=== PATIENT | female | born 1990 | race Caucasian/White ===

== ENCOUNTER 2016-04-12 03:25 | Emergency (ER) | payer BC ==
[~2016-04-12 03:25] MED LIST: IBUP600 PO
--- NOTE | 2016-04-12 04:08 | PD ---
HPI Chief Complaint Contractions Date Seen: Apr 12, 2016 Travel History International Travel<30 Days: No Contact w/Intl Traveler<30Days: No Known Affected Area: No History of Present Illness HPI 25-year-old white female 39 weeks irregular contractions and tingling feelings in the vaginal area, no bleeding or ruptured membranes baby is active. Contractions are not that uncomfortable. Checked in the office and she was 2 cm and recheck tonight she still 2 cm Para: 2 : 3 History Obstetric History Obstetric History 2 vaginal deliveries Family History Family History: Negative Social History Alcohol Use: No Tobacco Use: No Substance Abuse: No Allergies-Medications (Allergen,Severity, Reaction): Coded Allergies: No Known Allergies (Verified , 07/09/09) Home Meds Active Scripts Ibuprofen (Motrin 600 Mg Tab)600 Mg [id number] Mg PO Q6H PRN ( CRAMPING) # 30 TAB Prov:Tina Baum MD 03/10/15 Review of Systems General / Constitutional: No: Fever, Weight Gain, Chills, Other Eyes: No: Diploplia, Blurred Vision, Visual changes, Pain, Photophobia HENT: No: Headaches, Vertigo, Lightheadedness Cardiovascular: No: Irregular Rhythm, Chest Pain or Discomfort, Palpitations, Tachycardia, Syncope, Varicosities, Edema, Cyanosis Respiratory: No: Cough, Short of Breath, Other Gastrointestinal: No: Nausea, Vomiting, Diarrhea Genitourinary: No: Decreased Urinary Output, Oliguria Musculoskeletal: No: Limited ROM, Weakness, Cramping, Edema, Pain Skin: No Rash, No Itching, No Dryness, No Lumps, No Change in Pigmentation, No Change in Nails, No Alopecia, No Lesions Neurologic: No: Weakness, Dizziness, Syncope, Focal Abnormalities, Coordination Problem, Headache, Slurred Speech, Seizures Psychiatric: No: Depression, Suicidal Ideations, Homicidal Ideation Endocrine: No: Heat Intolerance, Cold Intolerance, Polydipsia, Polyuria, Other Physical Exam Narrative GENERAL: Well-nourished, well-developed patient. SKIN: Warm and dry. HEAD: Normocephalic and atraumatic. EYES: No scleral icterus. No injection or drainage. ENT: No nasal drainage noted. Mucous membranes pink. Airway patent. NECK: Supple, trachea midline. No JVD. CARDIOVASCULAR: Regular rate and rhythm without murmurs, gallops, or rubs. RESPIRATORY: Breath sounds equal bilaterally. No accessory muscle use. BREASTS: Bilateral exam showed no masses , no retractions, no nipple discharge. ABDOMEN/GI: Abdomen soft, non-tender, bowel sounds present, no rebound, no guarding Gravid to [39-] weeks size Fundal Height: [-39] GENITOURINARY: External Genitalia: intact and normal in appearance BUS glands: [-] Cervix: [-] Dilatation: [-2] Effacement: [70-] Station: [-3] Presentation: [vtx-] Membranes: [intact ] Uterine Contractions: [irreg-] FHT's: Category: [1-] Baseline: [144-] Reactive: [yes-] Variability: [mod-] Decels: [none-] EXTREMITIES: No cyanosis or edema. BACK: Nontender without obvious deformity. No CVA tenderness. NEUROLOGICAL: Awake and alert. Motor and sensory grossly within normal limits. Five out of 5 muscle strength in all muscle groups. Normal speech. MDM Interpretation(s) 25-year-old white female at 39 weeks with irregular contractions no bleeding or rupture the membranes heart rate tracing is reactive contractions are irregular and not too painful, the patient's cervix is still 2 cm 70% -3 which is no change from previous exam. She is to see her OB doctor Dr. George on Tuesday in 3 days Plan Plan to discharge patient home turn for increasing pain leakage of fluid or bleeding Diagnosis Diagnosis: Primary Impression: Jori Leonardo contractions Disposition: 01 DISCHARGE HOME Condition: Stable Stan Marcial II, MD Apr 12, 2016 04:08
== END 2016-04-12 07:35 | disposition home or self-care (01) ==
LOC: HOBED 03:25
DX: O47.1 False labor at or after 37 completed weeks of gestation (principal); Z3A.39 39 weeks gestation of pregnancy
CPT/HCPCS: 59025; 99283

== ENCOUNTER 2016-04-19 04:06 | Inpatient (IN) | payer BC ==
[~2016-04-19] VITALS: Ht 157.5 cm; Wt 77.1 kg
[2016-04-19] VITALS (35 sets, daily range): BP systolic 96–136; BP diastolic 34–93; PULSE 16–107; RESP 16–20; TEMP 97.9–99.3; O2SAT 82
[2016-04-19] MEDS ORDERED: LACTATED RINGER'S 1000 ML INJ 1,000 ML IV SCH (04:49)
[2016-04-19] MEDS ORDERED: LACTATED RINGER'S 1000 ML INJ 1,000 ML IV PRN (04:49)
--- NOTE | 2016-04-19 04:49 | PD ---
HPI Chief Complaint Contractions Date Seen: Apr 19, 2016 Travel History International Travel<30 Days: No Contact w/Intl Traveler<30Days: No Known Affected Area: No History of Present Illness HPI at 40w 4d, presents with contractions. Denies LOF/VB. Reports good movement. Denies problems this . Para: 2 : 3 History Past Medical History Medical History: Denies Significant Hx Past Surgical History Surgical History: No Previous Surgery Family History Family History: Negative Social History Alcohol Use: No Tobacco Use: No Substance Abuse: No Allergies-Medications (Allergen,Severity, Reaction): Coded Allergies: No Known Allergies (Verified , 07/09/09) Home Meds Active Scripts Ibuprofen (Motrin 600 Mg Tab)600 Mg [id number] Mg PO Q6H PRN ( CRAMPING) # 30 TAB Prov:Tina Baum MD 03/10/15 Physical Exam AFVSS BP 111/78 Narrative GENERAL: Well-nourished, well-developed patient. SKIN: Warm and dry. HEAD: Normocephalic and atraumatic. EYES: No scleral icterus. No injection or drainage. ENT: No nasal drainage noted. Mucous membranes pink. Airway patent. NECK: Supple, trachea midline. No JVD. CARDIOVASCULAR: Regular rate and rhythm without murmurs, gallops, or rubs. RESPIRATORY: Breath sounds equal bilaterally. No accessory muscle use. BREASTS: Bilateral exam showed no masses , no retractions, no nipple discharge. ABDOMEN/GI: Abdomen soft, non-tender, bowel sounds present, no rebound, no guarding Gravid to [-] weeks size Fundal Height: [-] GENITOURINARY: External Genitalia: intact and normal in appearance BUS glands: [-] Cervix: [-] Dilatation: [6] Effacement: [80] Station: [2] Presentation: [-] Membranes: [intact or ruptured] Uterine Contractions: [irregular] FHT's: Category: [1] Baseline: [130s] Reactive: [-] Variability: [moderate] Decels: [none] EXTREMITIES: No cyanosis or edema. BACK: Nontender without obvious deformity. No CVA tenderness. NEUROLOGICAL: Awake and alert. Motor and sensory grossly within normal limits. Five out of 5 muscle strength in all muscle groups. Normal speech. Data Data Vital Signs Reviewed: Yes MDM Interpretation(s) at 40w 4d, in active labor Plan Will admit to L&D. Dr. Kidd notified. Diagnosis Diagnosis: Primary Impression: 40 weeks gestation of Additional Impression: Irregular uterine contractions Christine Morejon MD Apr 19, 2016 04:49
[2016-04-19] MEDS ORDERED: LIDOCAINE HCL 1% 50 ML VIAL I-DERMAL PRN (05:00)
[2016-04-19] MEDS ORDERED: CITRIC ACID-SODIUM CITRATE LIQ 30 ML UDC PO SCH (05:00)
[2016-04-19] MEDS ORDERED: OXYTOCIN 30 UNITS-500ML PREMIX 500 ML IV ONE (05:00)
[2016-04-19] MEDS ORDERED: MINERAL OIL 10 ML VIAL TOPICAL PRN (05:00)
[2016-04-19] MEDS ORDERED: SODIUM CHLORID 0.9% 500 ML INJ 500 ML IV PRN (05:00)
[2016-04-19] MEDS ORDERED: LIDOCAINE HCL 1% 50 ML VIAL INFIL PRN (05:00)
[2016-04-19] MEDS ORDERED: SODIUM CHLOR 0.9% 1000 ML INJ 1,000 ML IV PRN (05:09)
[2016-04-19 05:26] LABS: AUTOMATED NEUTROPHIL # 11.1 TH/MM3 (1.8-7.7); BASOPHIL % 0.1 % (0.0-2.0); EOSINOPHIL % 0.2 % (0.0-4.0); HEMO FLAGS DIFF FINAL; LYMPH % 11.1 % (9.0-44.0); LYMPHOCYTE # 1.5 TH/MM3 (1.0-4.8); MEAN CELL VOLUME 75.8 FL (80.0-100.0); MEAN CORPUSCULAR HEMOGLOBIN 25.3 PG (27.0-34.0); MEAN CORPUSCULAR HGB CONC 33.4 % (32.0-36.0); MONO % 6.7 % (0.0-8.0); NEUT % 81.9 % (16.0-70.0); PLATELET COUNT 257 TH/MM3 (150-450); RED BLOOD COUNT 4.22 MIL/MM3 (4.00-5.30); RED CELL DISTRIBUTION WIDTH 15.2 % (11.6-17.2); WHITE BLOOD COUNT 13.6 TH/MM3 (4.0-11.0)
[2016-04-19] MEDS ORDERED: fentaNYL 2MCG-BUPIV 0.125% INJ 100 ML ONE (05:32)
[2016-04-19 05:34] LABS: BLOOD, URINE MOD (NEG); COMMENT (UR) CULT NOT INDICATED; CULTURE IF INDICATED CULT NOT INDICATED; GLUCOSE,URINE NEG (NEG); HYALINE CAST, URINE 1 /lpf (RARE); KETONE, URINE 10 mg/dL (NEG); MUCUS URINE FEW /lpf (OCC); NITRITE,URINE NEG (NEG); SQUAMOUS EPITHELIAL CELL URINE 17 /hpf (0-5); URINE COLOR YELLOW (YELLW/STRAW)
[2016-04-19] MEDS ORDERED: ePHEDrine/NS 25 MG/5 ML SYR IV PRN (07:30)
[2016-04-19] MEDS ORDERED: DO NOT ADMINISTER ANTICOAGULANTS XX PRN (09:00)
[2016-04-19] MEDS ORDERED: fentaNYL 2MCG-BUPIV 0.125% 100 ML EPIDURAL SCH (09:00)
[2016-04-19] MEDS ORDERED: NO SYSTEM NARCOTICS XX PRN (09:00)
--- NOTE | 2016-04-19 09:32 | PD.OB.DELI ---
Anesthesia: Epidural Episiotomy: None Vaginal Delivery: Normal Presentation: Occiput anterior Nuchal Cord: x1 (nonreducable, clamped and cut; uncomplicated) Delayed cord clamping (45 sec): No Infant: Male One Minute : 8 Five Minute : 8 Infant Care: Suctioned, Spontaneous crying, Blow-by O2 delivered Placenta: Spontaneous delivery, Intact, 3 vessel cord Laceration: No lacerations Additional Information EBL < 250 cc Ag Chamorro MD Apr 19, 2016 09:32
[2016-04-19] MEDS ORDERED: ACETAMINOPHEN 325 MG TAB PO PRN (09:45)
[2016-04-19] MEDS ORDERED: WITCH HAZEL 50%/GLYCERIN 12.5% 40 PAD JAR TOPICAL PRN (09:45)
[2016-04-19] MEDS ORDERED: BENZOCAINE 20% TOPICAL SPRAY 60 ML CAN TOPICAL PRN (09:45)
[2016-04-19] MEDS ORDERED: ALUMINUM/MAGNESIUM/SIMETH 30 ML CUP PO PRN (09:45)
[2016-04-19] MEDS ORDERED: SODIUM CHLORIDE 0.9% FLUSH 5 ML FLUSH IV SCH (09:45)
[2016-04-19] MEDS ORDERED: DOCUSATE SODIUM 50 MG/SENNA 8.6 MG TAB PO PRN (09:45)
[2016-04-19] MEDS ORDERED: OXYTOCIN 10 UNIT/ML AMP XX PRN (09:45)
[2016-04-19] MEDS ORDERED: SODIUM CHLORIDE 0.9% FLUSH 5 ML FLUSH IV PRN (09:45)
[2016-04-19] MEDS ORDERED: ONDANSETRON ODT 4 MG TAB PO PRN (09:45)
[2016-04-19 13:56] LABS: RAPID PLASMA REAGIN SCREEN NON-REACTIVE (NON-REACTVE)
[2016-04-19] MEDS ORDERED: DIPHTH/TETANUS/ACEL PERTUSSIS (BOOSTER) 0.5 ML VIAL/PFS IM ONE (16:00)
[2016-04-19] MEDS ORDERED: MEASLES, MUMPS, RUBELLA VACCINE 0.5 ML VIAL SQ ONE (16:00)
[2016-04-19] MEDS ORDERED: ZOLPIDEM TARTRATE 5 MG TAB PO PRN (21:00)
[2016-04-20 08:00] VITALS: BP 117/71; PULSE 72; RESP 17; TEMP 97.8
[2016-04-20] MEDS: IBUPROFEN 600 MG TAB PO PRN (08:08)
--- NOTE | 2016-04-20 08:31 | HHI.OB ---
Subjective Post Day: 1 Remarks s/p uncomplicated Objective Vitals/I&O Vital Signs Date Time Temp Pulse Resp B/P Pulse Ox O2 Delivery O2 Flow Rate FiO2 04/19/16 20:20 99.3 87 18 113/69 04/19/16 12:15 97.9 82 16 04/19/16 12:15 16 105/56 82 04/19/16 11:01 79 112/69 04/19/16 10:45 71 112/61 04/19/16 10:30 18 04/19/16 10:30 78 112/66 04/19/16 10:15 75 122/69 04/19/16 10:01 79 112/50 04/19/16 09:45 80 121/82 04/19/16 09:45 98.3 18 04/19/16 09:30 91 125/67 04/19/16 09:16 104 131/82 04/19/16 09:00 97 118/79 04/19/16 08:45 107 126/89 Objective Remarks GENERAL: Well-nourished, well-developed patient. CARDIOVASCULAR: Regular rate and rhythm without murmurs, gallops, or rubs. RESPIRATORY: Breath sounds equal bilaterally. No accessory muscle use. ABDOMEN/GI: Abdomen soft, non-tender. Fundus: Firm, non-tender at umbilicus. GENITOURINARY: Light to moderate bleeding. EXTREMITIES: No cyanosis or edema, non-tender, without signs of DVT. Medications and IVs Current Medications Medications (Trade) Dose Ordered Sig/Shemar Route Start Time Stop Time Status Last Admin Lactated Ringer's 1,000 ml @ 125 mls/hr Q8H IV 04/19/16 04:49 04/19/16 04:45 Lactated Ringer's 1,000 ml @ 3,000 mls/hr Q20M PRN IV 04/19/16 04:49 04/19/16 06:00 (NS 1000 ml Inj) 1,000 ml @ 100 mls/hr Q10H PRN IV 04/19/16 05:09 (fentaNYL INJ) 50 mcg Q1H PRN IV PUSH 04/19/16 05:00 (fentaNYL INJ) 100 mcg Q1H PRN IV PUSH 04/19/16 05:00 (Muri-Lube Oil) 10 ml UNSCH PRN TOPICAL 04/19/16 05:00 Miscellaneous Information No systemic narcotics to be given except... UNSCH PRN XX 04/19/16 09:00 04/20/16 08:59 Miscellaneous Information DO NOT ADMINISTER ANY ANTICOAGUL... UNSCH PRN XX 04/19/16 09:00 04/20/16 08:59 (fentaNYL 2MCG-BUPIV 0.125% INJ) 100 ml @ 0 mls/hr TITRATE EPIDURAL 04/19/16 09:00 (NS Flush) 2 ml BID IV 04/19/16 09:45 (NS Flush) 2 ml UNSCH PRN IV 04/19/16 09:45 (Tylenol) 650 mg Q4H PRN PO 04/19/16 09:45 (Motrin) 600 mg Q6H PRN PO 04/19/16 09:45 04/20/16 08:08 (Americaine 20% Top Spr) 1 spray Q4H PRN TOPICAL 04/19/16 09:45 (Tucks Pads) 1 applic QID PRN TOPICAL 04/19/16 09:45 (Lenore-Colace) 2 tab Q12H PRN PO 04/19/16 09:45 04/20/16 08:07 (Ambien) 5 mg HS PRN PO 04/19/16 21:00 (Mag-Al Plus Susp Liq) 15 ml Q8H PRN PO 04/19/16 09:45 (Zofran Odt) 4 mg Q6H PRN PO 04/19/16 09:45 Assessment/Plan Problem List: (1) 40 weeks gestation of (2) (normal spontaneous vaginal delivery) Assessment and Plan PPD#1 routine PP care support plan circ prior to infant discharge Discharge Planning routine, PPD#2 Deysi Sanders MD Apr 20, 2016 08:31
[2016-04-21] MEDS: IBUPROFEN 600 MG TAB PO PRN (00:01)
--- NOTE | 2016-04-21 08:57 | HHI.OB ---
Subjective Post Day: 2 Remarks no c/o , circ done Objective Vitals/I&O vss afeb Objective Remarks GENERAL: Well-nourished, well-developed patient. CARDIOVASCULAR: Regular rate and rhythm without murmurs, gallops, or rubs. RESPIRATORY: Breath sounds equal bilaterally. No accessory muscle use. ABDOMEN/GI: Abdomen soft, non-tender. Fundus: Firm, non-tender at umbilicus. GENITOURINARY: Light to moderate bleeding. EXTREMITIES: No cyanosis or edema, non-tender, without signs of DVT. Medications and IVs Current Medications Medications (Trade) Dose Ordered Sig/Shemar Route Start Time Stop Time Status Last Admin Lactated Ringer's 1,000 ml @ 125 mls/hr Q8H IV 04/19/16 04:49 04/19/16 04:45 Lactated Ringer's 1,000 ml @ 3,000 mls/hr Q20M PRN IV 04/19/16 04:49 04/19/16 06:00 (NS 1000 ml Inj) 1,000 ml @ 100 mls/hr Q10H PRN IV 04/19/16 05:09 (fentaNYL INJ) 50 mcg Q1H PRN IV PUSH 04/19/16 05:00 (fentaNYL INJ) 100 mcg Q1H PRN IV PUSH 04/19/16 05:00 Mineral Oil 10 ml 10 ml UNSCH PRN TOPICAL 04/19/16 05:00 (fentaNYL 2MCG-BUPIV 0.125% INJ) 100 ml @ 0 mls/hr TITRATE EPIDURAL 04/19/16 09:00 (NS Flush) 2 ml BID IV 04/19/16 09:45 (NS Flush) 2 ml UNSCH PRN IV 04/19/16 09:45 (Tylenol) 650 mg Q4H PRN PO 04/19/16 09:45 (Motrin) 600 mg Q6H PRN PO 04/19/16 09:45 04/21/16 00:01 (Americaine 20% Top Spr) 1 spray Q4H PRN TOPICAL 04/19/16 09:45 (Tucks Pads) 1 applic QID PRN TOPICAL 04/19/16 09:45 (Lenore-Colace) 2 tab Q12H PRN PO 04/19/16 09:45 04/20/16 08:07 (Ambien) 5 mg HS PRN PO 04/19/16 21:00 (Mag-Al Plus Susp Liq) 15 ml Q8H PRN PO 04/19/16 09:45 (Zofran Odt) 4 mg Q6H PRN PO 04/19/16 09:45 Assessment/Plan Problem List: (1) 40 weeks gestation of (2) (normal spontaneous vaginal delivery) Assessment and Plan PPD#2 routine PP care support Discharge Planning routine, PPD#2 Attending Attestation pt seen by Sera James MD Apr 21, 2016 08:57
[2016-04-21] MEDS ORDERED: IBUP-232 PO (08:58)
--- NOTE | 2016-04-21 08:58 | HHI.DCPOC ---
Discharge Care Plan Your Health Problems Are: Pelvic pain Report Symptoms to Your Doctor -Temperate above 100.5 degrees -Redness, of incision or excessive or foul smelling drainage -Unusual pain or calf pain -Increased vaginal bleeding -Painful or difficulty urinating -Feelings of extreme sadness or anxiety after 2 weeks Goals to Promote Your Health * To prevent worsening of your condition and complications * To maintain your health at the optimal level Directions to Meet Your Goals Take your medications as prescribed Follow your dietary instruction Follow activity as directed Ensure plenty of rest for recovery Drink fluids for hydration Keep your appointments as scheduled Take your immunizations and boosters as scheduled If your symptoms worsen call your PCP, if no PCP go to Urgent Care Center or Emergency Room Smoking is Dangerous to Your Health. Avoid second hand smoke Call the 24-hour crisis hotline for domestic abuse at Sera George MD Apr 21, 2016 08:58
== END 2016-04-21 10:59 | disposition home or self-care (01) | DRG 775 ==
LOC: HOBED 04:06 → H2EA 04:57 → H1EA 13:15
PROVIDERS: ADMIT Obstetrics & Gynecology; ATTEND Obstetrics & Gynecology
PROC: 10E0XZZ Delivery of Products of Conception, External Approach (ICD-10-PCS; principal; 2016-04-19)
DX: O48.0 Post-term pregnancy (principal); O69.81X0 Labor and delivery complicated by cord around neck, without compression, not applicable or unspecified; Z3A.40 40 weeks gestation of pregnancy; Z37.0 Single live birth
CPT/HCPCS: 81001; 85025; 86592; 99285; J7120